=== PATIENT | male | born 1990 | race Caucasian/White ===

== ENCOUNTER 2016-12-18 13:41 | Emergency (ER) | payer OTHER ==
[2016-12-18 14:02] LABS: CH 29.5; CHCM 34.9; HCT 31.4 % (39.0-53.0); HDW 2.61; HGB 10.8 gm/dL (13.0-17.5); MCH 29.1 pg (25.0-35.0); MCHC 34.2 g/dL (31.0-37.0); Mean Platelet Volume 7.4; RDW 12.8 % (11.5-15.5); WBC 13.3 k/uL (3.8-10.6)
[2016-12-18 14:06] LABS: Ionized Calcium 4.8 mg/dL (4.5-5.3)
[2016-12-18 14:14] LABS: Anion Gap 10 mmol/L; Carbon Dioxide 21 mmol/L (22-30); Chloride 107 mmol/L (98-107); Potassium 3.4 mmol/L (3.5-5.1); Sodium 138 mmol/L (137-145)
[2016-12-18 14:14] LABS: Alcohol <10 mg/dL; Amylase 33 U/L (30-110)
[2016-12-18] MEDS ORDERED: HYDROmorphone 1 MG/ML 1 ML SYRINGE IVP STA (14:18)
[2016-12-18] MEDS ORDERED: ceFAZolin 1,000 MG in DEXTROSE/WATER 1 50ML.BAG IVPB STA (14:18)
[2016-12-18] MEDS ORDERED: DIPH,PERTUS(ACELL)TETVAC-LF 0.5 ML VIAL IM ONE (14:19)
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
[2016-12-18 14:22] LABS: INR 1.2 (<1.1)
[2016-12-18 14:23] LABS: Prothrombin Time 11.8 sec (9.0-12.0)
[2016-12-18 14:23] LABS: Creatine Kinase 561 U/L (55-170)
[2016-12-18 14:37] LABS: Troponin I <0.012 ng/mL (0.000-0.034)
[2016-12-18 14:38] LABS: ALT 200 U/L (21-72); AST 171 U/L (17-59); Alkaline Phosphatase 35 U/L (38-126); Blood Urea Nitrogen 12 mg/dL (9-20); Calcium 8.2 mg/dL (8.4-10.2); Glucose 203 mg/dL (74-99); Non-African American GFR(MDRD) 54 (>60 ml/min/1.73 sqM); Total Bilirubin 0.3 mg/dL (0.2-1.3); Total Protein 4.7 g/dL (6.3-8.2)
[2016-12-18 14:41] LABS: Creatine Kinase MB 5.1 ng/mL (0.0-2.4)
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
[2016-12-18] MEDS ORDERED: EPINEPHrine 10 ML SYRINGE (0.1 MG/ML) ONE (15:40)
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
[2016-12-18 17:44] VITALS: BP 83/32; PULSE 147; RESP 16; TEMP 97
== END 2016-12-18 15:43 | disposition short-term general hospital (02) ==
LOC: EC 13:41 → EDBD 13:41 → EC 15:43
DX: S32.11 Zone I fracture of sacrum (principal); S32.810B Multiple fractures of pelvis with stable disruption of pelvic ring, initial encounter for open fracture; S32.4 Fracture of acetabulum; S32.039A Unspecified fracture of third lumbar vertebra, initial encounter for closed fracture; S32.049A Unspecified fracture of fourth lumbar vertebra, initial encounter for closed fracture; S32.059A Unspecified fracture of fifth lumbar vertebra, initial encounter for closed fracture; S71.011A Laceration without foreign body, right hip, initial encounter; S31.113A Laceration without foreign body of abdominal wall, right lower quadrant without penetration into peritoneal cavity, initial encounter; S71.111A Laceration without foreign body, right thigh, initial encounter; R40.2412 Glasgow coma scale score 13-15, at arrival to emergency department; Z23 Encounter for immunization; V49.60XA Unspecified car occupant injured in collision with unspecified motor vehicles in traffic accident, initial encounter; Y92.410 Unspecified street and highway as the place of occurrence of the external cause
CPT/HCPCS: 99291; 99292; 31500; 90471; 36415; 94002; 86900; 86901; 80051; 80053; 82330; 82150; 82550; 82553; 83605; 83690; 84484; 85027; 85384; 85610; 85730; 86850; 86920; 80320; 71010; 72170; 72125; 70450; 71250; 74176; 90715; P9016; P9017; P9059; J0171; J0690